=== PATIENT | male | born 1980 | race Caucasian/White ===

== ENCOUNTER 2019-03-14 13:46 | Emergency (ER) | payer OTHER ==
[~2019-03-14] VITALS: Ht 170.2 cm; Wt 115.8 kg
--- NOTE | 2019-03-14 13:53 | NUR ---
MD TO TRIAGE TO DO NEURO ASSESSMENT OF PT PRIOR TO ROOMING
[2019-03-14] MEDS ORDERED: DIPHENHYDRAMINE 50 MG/ML, 1ML IVPush ONE (14:00)
[2019-03-14] MEDS ORDERED: METOCLOPRAMIDE 5 MG/ML, 2ML IVPush ONE (14:00)
[2019-03-14] MEDS ORDERED: DIPHENHYDRAMINE 50 MG/ML, 1ML ONE (14:03)
[2019-03-14] MEDS ORDERED: METOCLOPRAMIDE 5 MG/ML, 2ML ONE (14:04)
[2019-03-14 14:24] LABS: ANION GAP 9 mmol/L (5-15); CALCIUM 8.8 mg/dL (8.5-10.1); CHLORIDE 103 mmol/L (98-107); CREATININE 0.91 mg/dL (0.7-1.3)
[2019-03-14 14:26] LABS: BASOPHILS # (AUTO) 0.09 x10^3/uL (0-0.1); BASOPHILS % (AUTO) 1 % (0-1); EOSINOPHILS # (AUTO) 0.06 x10^3/uL (0-0.4); EOSINOPHILS % (AUTO) 1 % (1-7); LYMPHOCYTES # (AUTO) 2.97 x10^3/uL (1-3.4); LYMPHOCYTES % (AUTO) 24 % (22-44); MD NO; MEAN CORPUSCULAR HEMOGLOBIN 30.5 pg (27.5-34.5); MEAN CORPUSCULAR VOLUME 92.4 fL (81-97); MEAN PLATELET VOLUME 9.4 fL (7.4-10.4); MONOCYTES # (AUTO) 0.66 x10^3/uL (0.2-0.8); MONOCYTES % (AUTO) 5 % (2-9); NEUTROPHILS # (AUTO) 8.61 x10^3/uL (1.8-6.8); NEUTROPHILS % (AUTO) 70 % (42-75); PLATELET COUNT 259 x10^3/uL (130-400); RED BLOOD COUNT 5.46 x10^6/uL (4.38-5.82); RED CELL DISTRIBUTION WIDTH 13.7 % (9.4-14.8)
--- NOTE | 2019-03-14 14:33 | NUR ---
Resident MD at bedside. PIV established. Medications provided per EMAR. PALMER. Resident doing stroke assessment at bedside. No needs expressed at this time.
[2019-03-14 15:52] VITALS: BP 121/68
--- NOTE | 2019-03-14 16:39 | NUR ---
Patient given discharge instructions and they have confirmed that they understand the instructions. Patient ambulatory with steady gait. Pt left with prescription, d/c paperwork, and all personal belongings. NADN. No needs expressed.
== END 2019-03-14 16:41 | disposition home or self-care (01) ==
LOC: ED 16:30
DX: H53.132 Sudden visual loss, left eye (principal); H53.122 Transient visual loss, left eye; R51 Headache
CPT/HCPCS: 36415; 70450; 80048; 82040; 85025; 93005; 96374; 96375; 99284; J1200; J2765